=== PATIENT | male | born 2005 | race Caucasian/White ===

== ENCOUNTER 2024-06-27 09:29 | Emergency (ER) | payer OTHER ==
[2024-06-27] MEDS: Lidocaine 1% 5 ML VIAL INJECT ONE (10:44)
[2024-06-27] MEDS: Bacitracin Oint 1 GM U/D Packet TOP ONE (10:44)
== END 2024-06-27 11:10 | disposition home or self-care (01) ==
LOC: JP.ED 09:29
DX: S61.212A Laceration without foreign body of right middle finger without damage to nail, initial encounter (principal); Z86.16 Personal history of COVID-19; W26.0XXA Contact with knife, initial encounter; Y99.0 Civilian activity done for income or pay; Y92.89 Other specified places as the place of occurrence of the external cause
CPT/HCPCS: 12001; 99282